=== PATIENT | female | born 1990 | race Caucasian/White ===

== ENCOUNTER 2016-09-11 08:52 | Outpatient (CLI) | payer MEDICAID ==
[~2016-09-11] VITALS: Ht 165.1 cm; Wt 77.6 kg
[~2016-09-11 08:52] MED LIST: FRS325T PO; MUPI22OI29 EXT; OXYC-12 PO; PNV1CAPS13 PO
[2016-09-11] MEDS ORDERED: SERT50TA2 PO (09:07)
[2016-09-11 09:09] VITALS: BP 107/64
== END 2016-09-11 09:33 | disposition home or self-care (01) ==
LOC: PREOP 08:52
PROVIDERS: ATTEND Obstetrics & Gynecology
DX: Z01.818 Encounter for other preprocedural examination (principal); Z11.2 Encounter for screening for other bacterial diseases; O34.219 Maternal care for unspecified type scar from previous cesarean delivery
CPT/HCPCS: 87081

== ENCOUNTER 2016-09-20 06:06 | Inpatient (IN) | payer MEDICAID ==
[~2016-09-20] VITALS: Ht 167.6 cm; Wt 75.8 kg
[~2016-09-20 06:06] MED LIST changes: +CITRIC ACID/SOB CIT (BICITRA) 30 ML UDC ONE; +FAMOTIDINE 20MG/2ML IV (PEPCID) ONE; +LACTATED RINGERS 2,000 ML IV ONE; +METOCLOPRAMIDE INJ 10 MG/2 ML (REGLAN) ONE; +SERT50TA2 PO
--- OUTSIDE RECORDS SUMMARY | 2016-09-20 06:15 | XMS REPORT | Continuity of Care Document ---
Author Author [facility] Organization [facility] Address Unknown Phone Unavailable Care Team Providers Care Roof Truss Machine Tender Name Role Phone MARY CACERES MD PCP Insurance Providers Payer Name Policy Number Subscriber Name Relationship [facility] [id number] Christina Becerril 18 Self / Same As Patient Advance Directives Directive Response Recorded Date/Time Advance Directives No 09/11/16 9:00am Health Care Power of Bioinformatics Scientist No 09/11/16 9:00am Organ Donor No 09/11/16 9:00am Resuscitation Status Full Code 09/11/16 9:00am Problems No problem information available. Medications Current Home Medications Medication Dose Units Route Directions Days/Qty Instructions Start Date Pnv Comb.no58/Iron Bisgly/Fa 1 Each 1 Each Oral Daily Take daily for at least one month or as long as 11/27/12 Sertraline Hcl 50 Mg 50 Mg Oral Daily 09/11/16 Past Home Medications Medication Directions Ordered Status Mupirocin 22 Gm Oint, 22 Gm External Twice A Day 12/02/12 Discontinued Oxycodone Hcl/Acetaminophen 1 Each Tablet, 1 - 2 Each Oral Every 4HRS as needed 12/04/12 Discontinued Ferrous Sulfate 325 Mg Tablet, 1 Tab Oral Twice A Day 12/04/12 Discontinued Social History Social History Problem Response Recorded Date/Time Alcohol Use Denies Use 12/02/2012 10:19am Recreational Drug Use No 12/02/2012 10:19am Recent Foreign Travel No 12/02/2012 10:19am Recent Infectious Disease Exposure No 12/02/2012 10:19am Hospitalization with Isolation Denies 12/04/2012 8:57am Sexually Transmitted Disease No 09/11/2016 9:04am HIV/AIDS No 09/11/2016 9:04am Smoking Status Never a Smoker 09/11/2016 9:04am Recent Hopitalizations No 09/11/2016 9:04am Sexually Transmitted Disease No 09/11/2016 9:04am Hospitalization with Isolation Denies 12/04/2012 8:57am Query Response Start Date Stop Date Smoking Status Never a Smoker Hospital Discharge Instructions No hospital discharge instructions. Plan of Care Discharge Date 09/11/16 9:33am Prescriptions See Medication Section Functional Status No functional status results. Allergies, Adverse Reactions, Alerts No known allergies. Immunizations No immunization records. Vital Signs Acute Vital Signs Vital Response Date/Time Pulse Rate (adult) 81 bpm (60 - 90) 09/11/2016 9:09am Respiratory Rate 16 bpm (12 - 24) 09/11/2016 9:09am O2 Sat by Pulse Oximetry 98 % (88 - 100) 09/11/2016 9:09am Blood Pressure 107/64 mm Hg 09/11/2016 9:09am Blood Pressure Mean 78 mm Hg 09/11/2016 9:09am Pain Numeric Pain Scale 0-No Pain 09/11/2016 9:09am Height (Feet) 5 feet 09/11/2016 9:00am Height (Inches) 5.00 inches 09/11/2016 9:00am Height (Calculated Centimeters) 165.457756 cm 09/11/2016 9:00am Weight (Pounds) 171 pounds 09/11/2016 9:00am Weight (Ounces) 3.0 oz 09/11/2016 9:00am Weight (Calculated Grams) 20018.35 gm 09/11/2016 9:00am Weight (Calculated Kilograms) 77.925661 kilograms 09/11/2016 9:00am Calculated BMI 28.5 09/11/2016 9:00am Results No known relevant diagnostic tests, laboratory data and/or discharge summary. Procedures No known history of procedures. Encounters Encounter Location Arrival/Admit Date Discharge/Depart Date Attending Provider Departed Clinic [facility] 09/11/16 8:52am 09/11/16 9: 33am MAURILIO EUGENE MD
[2016-09-20] MEDS ORDERED: LACTATED RINGERS 1,000 ML IV PRN (06:18)
[2016-09-20] MEDS: LACTATED RINGERS 1,000 ML IV PRN ×2 (06:20→08:10)
[2016-09-20] MEDS ORDERED: CITRIC ACID/SOB CIT (BICITRA) 30 ML UDC PO ONE (06:30)
[2016-09-20] MEDS ORDERED: FAMOTIDINE 20MG/2ML IV (PEPCID) IV ONE (06:30)
[2016-09-20] MEDS ORDERED: METOCLOPRAMIDE INJ 10 MG/2 ML (REGLAN) IV ONE (06:30)
[2016-09-20 06:40] LABS: BASOPHILS % (AUTO) 0 % (0-10); EOSINOPHILS # (AUTO) 0.1 10^3/uL (0.0-0.3); EOSINOPHILS % (AUTO) 1 % (0-10); LYMPHOCYTES # (AUTO) 3.4 X 10^3 (1.0-4.0); LYMPHOCYTES % (AUTO) 26 % (12-44); MEAN CORPUSCULAR HEMOGLOBIN 29 PG (25-34); MEAN CORPUSCULAR HGB CONC 34 G/DL (32-36); MEAN CORPUSCULAR VOLUME 85 FL (80-99); MEAN PLATELET VOLUME 10.5 FL (7.4-10.4); MONOCYTES % (AUTO) 8 % (0-12); NEUTROPHILS # (AUTO) 8.3 X 10^3 (1.8-7.8); NEUTROPHILS % (AUTO) 65 % (42-75); PLATELET COUNT 329 10^3/uL (130-400); RED CELL DISTRIBUTION WIDTH 12.8 % (10.0-14.5); WHITE BLOOD COUNT 12.9 10^3/uL (4.3-11.0)
[2016-09-20 06:44] LABS: KETONES,URINE 1+ (NEGATIVE); LEUKOCYTE ESTERASE ,URINE 1+ (NEGATIVE); NITRITE,URINE NEGATIVE (NEGATIVE); PH,URINE 6 (5-9); PROTEIN,URINE 1+ (NEGATIVE); UROBILINOGEN,URINE 4 MG/DL (NORMAL)
[2016-09-20] MEDS ORDERED: KETOROLAC 30 MG/ML VIAL ONE (06:54)
[2016-09-20] MEDS ORDERED: OXYTOCIN/NORMAL SALINE 1,000 ML IV ONE (06:54)
[2016-09-20] MEDS ORDERED: ONDANSETRON 4 MG/2 ML (SDV) Z0FRAN ONE (06:54)
[2016-09-20] MEDS ORDERED: morphine PF (DURAMORPH) 10 MG/10 ML AMP ONE (06:55)
[2016-09-20] MEDS ORDERED: fentaNYL INJECTION 100 MCG/2 ML AMP ONE (06:55)
[2016-09-20 07:02] LABS: BILIRUBIN,URINE 1+ (NEGATIVE); WBC,URINE RARE /HPF
[2016-09-20] MEDS ORDERED: FLU TRIvalent (5 YOA+) 2016-17 (AFLURIA) 0.5 ML IM ONE (07:15)
--- NOTE | 2016-09-20 07:41 | History & Physical-OB ---
OB - Chief Complaint & HPI Date Date of Admission: Date of Admission: Sep 20, 2016 at 06:06 Chief Complaint/History OB-Reason for Admission/Chief: Section Hx : 4 Hx Para: 3 Expected Date of Delivery: Sep 27, 2016 Gestational Age in Weeks: 39 Gestational Age in Days: 0 Other reason for admission: 26 y/o @ 39w0d here for routine OB visit. H/o c/s x 3, GERD on PPI, depression on zoloft. GBS neg. Fetus is active, no LOF CTX VB. No complaints or concerns today. History of Labs A+ Ab neg RI Hep B neg Hep C neg RPR NR GC/CT neg/neg GBS neg Allergies and Home Medications Allergies Coded Allergies: No Known Drug Allergies (Unverified , 09/11/16) Home Medications Pnv Comb.no58/Iron Bisgly/Fa 1 Each Capsule 1 EACH PO DAILY (Reported) Take daily for at least one month or as long as Sertraline HCl 50 Mg Tablet 50 MG PO DAILY (Reported) OB - History Hx of Present Care: Yes Ultrasounds: Normal mid trimester US Obstetrical Complications: Other (social stressors (FOB jailed)) Medical Complications: Other (Depression - on zoloft, GERD on PPI) Information Induced Hypertension: No Maternal Gestational Diabetes: No Hemorrhage: No Obstetrical History Hx : 4 Hx Para: 3 Delivery History Hx Section: Yes (x3) Hx Blood Disorders: No Adverse Rxn to Tranfusion: No (N/A) Patient Past Medical History see above Social History/Family History HIV/AIDS: No Recent Infectious Disease Expo: No Sexually Transmitted Disease: No Alcohol Use: Denies Use Recreational Drug Use: No Immunizations Hepatitis A: No Hepatitis B: No Tetanus Booster (TDap): Less than 5yrs (2016 - during ) OB - Admission Exam Physical Exam Vitals: see nursing documentation of vitals HEENT: NCAT Heart: Rhythm Normal Lungs: Clear Abdomen: Gravid Extremities: Normal Reflexes: Normal Heart Rate: 120's Accelerations: Accelerations Present Decelerations: No Decelerations Short Term Variability: Present Refuse Laborer Variability: Average (6-25) Contractions on Admission: >10 Minutes Apart Labs Laboratory Tests Test 09/20/16 06:05 09/20/16 06:20 Range/Units Urine Bacteria TRACE /HPF Urine Bilirubin 1+ H NEGATIVE Urine Casts NONE /LPF Urine Clarity CLEAR Urine Color YELLOW Urine Crystals NONE /LPF Urine Culture Indicated NO Urine Glucose (UA) NEGATIVE NEGATIVE Urine Ketones 1+ H NEGATIVE Urine Leukocyte Esterase 1+ H NEGATIVE Urine Mucus LARGE H /LPF Urine Nitrite NEGATIVE NEGATIVE Urine Protein 1+ H NEGATIVE Urine RBC NONE /HPF Urine RBC (Auto) NEGATIVE NEGATIVE Urine Specific [place] 1.025 H 1.016-1.022 Urine Squamous Epithelial Cells 5-10 /HPF Urine Urobilinogen 4 H NORMAL MG/DL Urine WBC RARE /HPF Urine pH 6 5-9 Basophils # (Auto) 0.0 0.0-0.1 10^3/uL Basophils (%) (Auto) 0 0-10 % Eosinophils # (Auto) 0.1 0.0-0.3 10^3/uL Eosinophils (%) (Auto) 1 0-10 % Hematocrit 35 35-52 % Hemoglobin 11.7 11.5-16.0 G/DL Lymphocytes # (Auto) 3.4 1.0-4.0 X 10^3 Lymphocytes (%) (Auto) 26 12-44 % Mean Corpuscular Hemoglobin 29 25-34 PG Mean Corpuscular Hemoglobin Concent 34 32-36 G/DL Mean Corpuscular Volume 85 80-99 FL Mean Platelet Volume 10.5 H 7.4-10.4 FL Monocytes # (Auto) 1.0 0.0-1.0 X 10^3 Monocytes (%) (Auto) 8 0-12 % Neutrophils # (Auto) 8.3 H 1.8-7.8 X 10^3 Neutrophils (%) (Auto) 65 42-75 % Platelet Count 329 130-400 10^3/uL Red Blood Count 4.10 L 4.35-5.85 10^6/uL Red Cell Distribution Width 12.8 10.0-14.5 % White Blood Count 12.9 H 4.3-11.0 10^3/uL OB - Assessment/Plan/Diagnosis Plan Other Plan 26 y/o @ 39w0d with history of CD x 3, here for repeat CD. Depression - doing well on zoloft GERD Rh+ RI To OR for CD Discussed risks including bleeding, infection, damage to surrounding structures including mother/, risk of undiagnosed invasive placentation and need for hysterectomy with blood product replacement, possible life threatening complications Spinal for analgesia Continue zoloft, PPI MAURILIO EUGENE MD Sep 20, 2016 07:41
[2016-09-20] MEDS ORDERED: ceFAZolin INJECTION 1,000 MG in NORMAL SALINE (BAXTER MINI) 50 ML IV ONE (07:45)
[2016-09-20] MEDS ORDERED: LACTATED RINGERS 1,000 ML IV ONE (07:56)
[2016-09-20] MEDS ORDERED: PHENYLEPHRINE INJ 10 MG/ML (NEO-SYNEPHRINE 1%) ONE (08:04)
[2016-09-20] MEDS ORDERED: morphine PF (DURAMORPH) 10 MG/10 ML AMP INJ ONE (09:00)
[2016-09-20] MEDS ORDERED: fentaNYL INJECTION 100 MCG/2 ML AMP INJ ONE (09:00)
[2016-09-20] MEDS ORDERED: NALOXONE 0.4 MG/ML 1 ML (NARCAN) VIAL IV PRN (09:00)
[2016-09-20] MEDS ORDERED: IBUP-1780 PO (09:21)
[2016-09-20] MEDS ORDERED: OXYC-197 PO (09:21)
[2016-09-20] MEDS ORDERED: FERR-74 PO (09:21)
[2016-09-20] MEDS ORDERED: DOCU-143 PO (09:21)
--- NOTE | 2016-09-20 09:24 | Discharge Inst-Women's Service ---
Discharge Inst-Women's Serv Depart Medication/Instructions New, Converted or Re-Newed RX: RX on Chart (and transmitted to pharmacy) Final Diagnosis TIUP, history of CD x 3, CD Consults/Follow Up Additional Follow Up: Yes Orders/Referrals 10-[address] Pastrana for incision check [address] Pastrana for visit Activity Activity: Activity as Tolerated (no strenuous activity, no heavy lifting > 10 lb for 2 weeks) Driving Instructions: No Driving for 1 Week (or while taking narcotic pain medications) NO SMOKING: NO SMOKING Nothing Inside Vagina: No Douching, No [place], No Tampons Diet Discharge Diet: No Restrictions Symptoms to Report to : Bleeding Excessive, Pain Increased, Fever Over 101 Degrees F, Pain/Pressure in Chest, Vaginal Bleeding Increase, Dizziness/Fainting , Nausea/Vomiting, Shortness of Breath For Any Problems or Questions: Contact Your Physician Skin/Wound Care Infection Signs and Symptoms: Increased Redness, Foul Odor of Wound, Increased Drainage Operative Area Clean and Dry: Keep Incision Clean/Dry Stitches/[place]/Dermabond: Dermabond, Care of Stitches Bathing Instructions: MAURILIO Alva MD Sep 20, 2016 09:24
--- NOTE | 2016-09-20 09:28 | Cesarean Section Operative ---
Procedure Procedure Note Date of Procedure: September 20, 2016 Pre-operative Diagnosis: Christina Becerril is a 26 y/o @ 39w0d with history of delivery x 3, GBS negative Post-operative Diagnosis: Same Procedure: Repeat low transverse section Physician: Tawanna Pastrana MD Estimated blood loss: 400 mL Disposition: Recovery room, stable Findings: Viable male , Apgars 8/9, weight 7lb8oz, intact placenta, 3vc, normal appearing uterus, tubes, and ovaries. Indications:Christina Becerril is a 26 y/o @ 39w0d presenting for repeat delivery (she had a history of three deliveries). Procedure Details: The patient was seen in pre-op and the procedure was discussed with the patient in full, including the risks, benefits, and alternatives. All questions were answered. The patient was taken to the operating room and a time out was performed, verifying patient and procedure. Berta-operative antibiotics (ancef) were administered. After spinal anesthesia was placed by our anesthesia colleagues, the patient was placed in the dorsal supine with leftward tilt for uterine displacement. Her abdomen was then prepped and draped in the typical sterile fashion. A Pfannenstiel skin incision was made using a scalpel and carried down through the underlying fascia. The fascia was incised in the midline and tented up using Francisco clamps. On both the inferior and superior fascia side the rectus muscle was dissected off bluntly and sharply using Benavides scissors. The peritoneum was identified and entered bluntly in the midline. This was then stretched laterally using manual strength. After entering the abdominal cavity and confirming lack of intraperitoneal adhesions, a large Damaso retractor was placed and the lower uterine segment was visualized. A bladder flap was created with the use of Metzenbaum scissors. There were minimal to moderate adhesions present from the bowel to the uterus but overall, adhesive disease was felt to be minimal. A scalpel was utilized to make a low transverse uterine incision. Amniotomy was performed with an Allis clamp with return of clear fluid. The infant's head was grasped and brought to the level of the incision. Fundal pressure was applied and was delivered without difficulty. Mouth and nares were suctioned with bulb suction. After the umbilical cord was clamped and cut after a pause of 30 to 60 seconds, the infant was handed off to the pediatric staff and then placed on his mother's chest. A sample of cord blood was then obtained. The placenta was delivered intact via uterine massage. The uterus was cleared of all clots and debris. The uterine incision was closed using 0 Vicryl in a running locked fashion. A second imbricated layer was placed using 0 Vicryl in a running fashion as well. The hysterotomy site was examined and hemostasis was observed. The bilateral tubes and ovaries appeared normal. The abdominal gutters were cleared of all clots and debris. A final check of the uterine incision showed it to be hemostatic. The peritoneum was closed using 3-0 Vicryl in a running fashion. The fascia was closed with 0 Vicryl in a running fashion. The subcutaneous space was hemostatic, and irrigated. The subcutaneous space was closed with 3-0 Vicryl in a running stitch. The skin was then closed using 4 -0 Monocryl in a running subcuticular fashion. The skin edges were reapproximated together and were hemostatic. A pressure dressing was applied. All sponge, lap and needle counts were correct at the end of the procedure per nursing. Copies To 1: TAWANNA PASTRANA MD Vitals - Labs Labs Laboratory Tests 09/20/16 06:05: Urine Bacteria TRACE, Urine Bilirubin 1+H, Urine Casts NONE, Urine Clarity CLEAR , Urine Color YELLOW, Urine Crystals NONE, Urine Culture Indicated NO, Urine Glucose (UA) NEGATIVE, Urine Ketones 1+H, Urine Leukocyte Esterase 1+H, Urine Mucus LARGEH, Urine Nitrite NEGATIVE, Urine Protein 1+H, Urine RBC NONE, Urine RBC (Auto) NEGATIVE, Urine Specific [place] 1.025H, Urine Squamous Epithelial Cells 5-10, Urine Urobilinogen 4H, Urine WBC RARE, Urine pH 6 09/20/16 06:20: Basophils # (Auto) 0.0, Basophils (%) (Auto) 0, Eosinophils # (Auto) 0.1, Eosinophils (%) (Auto) 1, Hematocrit 35, Hemoglobin 11.7, Lymphocytes # (Auto) 3.4, Lymphocytes (%) (Auto) 26, Mean Corpuscular Hemoglobin 29, Mean Corpuscular Hemoglobin Concent 34, Mean Corpuscular Volume 85, Mean Platelet Volume 10.5H, Monocytes # (Auto) 1.0, Monocytes (%) (Auto) 8, Neutrophils # ( Auto) 8.3H, Neutrophils (%) (Auto) 65, Platelet Count 329, Red Blood Count 4.10L , Red Cell Distribution Width 12.8, White Blood Count 12.9H TAWANNA PASTRANA MD Sep 20, 2016 09:28
[2016-09-20] MEDS ORDERED: diphenhydrAMINE 50 MG/ML INJ (BENADRYL) ONE (10:22)
[2016-09-20] MEDS ORDERED: OXYTOCIN/NORMAL SALINE 500 ML IV SCH (10:32)
[2016-09-20] MEDS ORDERED: diphenhydrAMINE 50 MG/ML INJ (BENADRYL) IVP PRN (10:45)
[2016-09-20] MEDS ORDERED: ONDANSETRON 4 MG/2 ML (SDV) Z0FRAN IVP PRN (10:45)
[2016-09-20] MEDS ORDERED: MEASLES,MUMPS,RUBELLA 1 EA INJ SC SCH (10:45)
[2016-09-20] MEDS ORDERED: TETANUS,DIPTH,PERTUSS P/F (BOOSTRIX) 0.5 ML VIAL IM SCH (10:45)
[2016-09-20 12:30] VITALS: BP 92/56
[2016-09-20] MEDS: oxyCODONE/APAP 5/325MG (PERCOCET 5) TABLET PO PRN (12:40)
[2016-09-20] MEDS ORDERED: CATHETER FLUSH 10 ML SYR IV SCH (14:00)
[2016-09-20 16:15] VITALS: BP 98/61
[2016-09-20] MEDS: KETOROLAC 30 MG/ML VIAL IVP SCH ×2 (16:21→21:19)
[2016-09-20 21:00] VITALS: BP 91/55
[2016-09-20] MEDS: DOCUSATE SODIUM 100 MG (COLACE) CAP PO SCH (21:15)
[2016-09-21 01:20] VITALS: BP 95/54
[2016-09-21 05:50] VITALS: BP 101/62
[2016-09-21] MEDS: KETOROLAC 30 MG/ML VIAL IVP SCH (05:58)
[2016-09-21 06:01] LABS: BASOPHILS % (AUTO) 0 % (0-10); EOSINOPHILS # (AUTO) 0.2 10^3/uL (0.0-0.3); EOSINOPHILS % (AUTO) 2 % (0-10); LYMPHOCYTES # (AUTO) 3.7 X 10^3 (1.0-4.0); LYMPHOCYTES % (AUTO) 34 % (12-44); MEAN CORPUSCULAR HGB CONC 33 G/DL (32-36); MEAN CORPUSCULAR VOLUME 87 FL (80-99); MEAN PLATELET VOLUME 10.1 FL (7.4-10.4); MONOCYTES % (AUTO) 9 % (0-12); NEUTROPHILS # (AUTO) 5.9 X 10^3 (1.8-7.8); NEUTROPHILS % (AUTO) 55 % (42-75); PLATELET COUNT 279 10^3/uL (130-400); RED BLOOD COUNT 3.23 10^6/uL (4.35-5.85); RED CELL DISTRIBUTION WIDTH 12.9 % (10.0-14.5); WHITE BLOOD COUNT 10.9 10^3/uL (4.3-11.0)
[2016-09-21 06:02] LABS: MEAN CORPUSCULAR HEMOGLOBIN 28 PG (25-34)
[2016-09-21] MEDS: PANTOPRAZOLE 40 MG (PROTONIX) TAB PO SCH (07:00)
--- NOTE | 2016-09-21 08:04 | Anesthesia-Regional Post-Op ---
Regional Patient Condition Mental Status: Alert, Oriented x3 Circulation: Same as Pre-Op Headache: Absent Sensation: Full Recovery Motor Block: Absent Post Op Complications Complications None Follow Up Care/Instructions Patient Instructions None needed. Anesthesia/Patient Condition Patient is doing well, no complaints, stable vital signs, no apparent adverse anesthesia problems. No complications reported per nursing. RYAN HOUSTON CRNA Sep 21, 2016 08:04
[2016-09-21 08:45] VITALS: BP 95/59
[2016-09-21] MEDS: DOCUSATE SODIUM 100 MG (COLACE) CAP PO SCH ×2 (08:55→21:37)
[2016-09-21] MEDS: oxyCODONE/APAP 5/325MG (PERCOCET 5) TABLET PO PRN ×3 (08:57→21:36)
[2016-09-21] MEDS ORDERED: FERROUS SULF 325 MG (IRON) TAB PO SCH (09:00)
--- NOTE | 2016-09-21 09:17 | Postpartum Progress Note ---
Post Op Post-operative Day #1 s/p RLTCS Patient not available when I rounded (showering). I have returned for delivery so examining now. Complains of some unilateral leg swelling. Baby has a pneumothorax (very small and improving) and possible pneumonia. Patient has ambulated early and regularly but SVDs in bed. Subjective: Patient is without complaints. Ambulating, voiding after berry removed. Tolerating a regular diet without nausea or vomiting. Normal lochia. Pain is well controlled with oral pain medications. Passing flatus. Objective: Laboratory Tests Test 09/21/16 05:51 Range/Units Basophils # (Auto) 0.0 0.0-0.1 10^3/uL Basophils (%) (Auto) 0 0-10 % Eosinophils # (Auto) 0.2 0.0-0.3 10^3/uL Eosinophils (%) (Auto) 2 0-10 % Hematocrit 28 L 35-52 % Hemoglobin 9.2 #L 11.5-16.0 G/DL Lymphocytes # (Auto) 3.7 1.0-4.0 X 10^3 Lymphocytes (%) (Auto) 34 12-44 % Mean Corpuscular Hemoglobin 28 25-34 PG Mean Corpuscular Hemoglobin Concent 33 32-36 G/DL Mean Corpuscular Volume 87 80-99 FL Mean Platelet Volume 10.1 7.4-10.4 FL Monocytes # (Auto) 1.0 0.0-1.0 X 10^3 Monocytes (%) (Auto) 9 0-12 % Neutrophils # (Auto) 5.9 1.8-7.8 X 10^3 Neutrophils (%) (Auto) 55 42-75 % Platelet Count 279 130-400 10^3/uL Red Blood Count 3.23 L 4.35-5.85 10^6/uL Red Cell Distribution Width 12.9 10.0-14.5 % White Blood Count 10.9 4.3-11.0 10^3/uL Vital Signs 09/21/16 05:50 Temp 97.8 Pulse 77 Resp 18 B/P 101/62 Pulse Ox 95 O2 Delivery Room Air Physical Exam: General - Alert and oriented, no apparent distress Abdomen - Soft, appropriately tender to palpation, non-distended, fundus firm at umbilicus Incision - clean, dry and intact; no erythema or induration, no drainage Extremities - tr edema, negative Casie's bilaterally. Legs are asymmetric. Calf on left is 39 mm and on r is 35 mm. No erythema, no heat, no ropiness and only minimal edema. No pain [] Assessment: 1 post-operative day # 1, status post RLTCS. Recovering well, hemodynamically stable 2. Acute blood loss anemia 3. Leg swelling Plan: Routine post-operative care. Encourage breast feeding. Encourage ambulation. VTE prophylaxis: SCDs. Will get venous doppler and treat accordingly Ferrous sulfate supplementation. Plan for discharge tomorrow or Friday. Addendum - negative venous doppler Vitals - Labs Vital Signs - I&O Vital Signs Date Time Temp Pulse Resp B/P Pulse Ox O2 Delivery O2 Flow Rate FiO2 09/21/16 05:50 97.8 77 18 101/62 95 Room Air 09/21/16 01:20 98.5 78 18 95/54 97 Room Air 09/20/16 21:00 97.9 65 18 91/55 98 Room Air 09/20/16 16:15 98.0 77 20 98/61 100 Room Air 09/20/16 16:10 Room Air 09/20/16 12:30 98.0 73 20 92/56 100 Room Air I & O 09/21/16 07:00 Intake Total 2770 ml Output Total 2285 ml Balance 485 ml Labs Laboratory Tests 09/21/16 05:51: Basophils # (Auto) 0.0, Basophils (%) (Auto) 0, Eosinophils # (Auto) 0.2, Eosinophils (%) (Auto) 2, Hematocrit 28L, Hemoglobin 9.2#L, Lymphocytes # (Auto ) 3.7, Lymphocytes (%) (Auto) 34, Mean Corpuscular Hemoglobin 28, Mean Corpuscular Hemoglobin Concent 33, Mean Corpuscular Volume 87, Mean Platelet Volume 10.1, Monocytes # (Auto) 1.0, Monocytes (%) (Auto) 9, Neutrophils # (Auto ) 5.9, Neutrophils (%) (Auto) 55, Platelet Count 279, Red Blood Count 3.23L, Red Cell Distribution Width 12.9, White Blood Count 10.9 MINNIE GÓMEZ DO Sep 21, 2016 09:17
[2016-09-21 12:10] VITALS: BP 111/71
[2016-09-21] MEDS: IBUPROFEN 800 MG (MOTRIN) TAB PO SCH ×2 (12:16→19:02)
[2016-09-21 17:00] VITALS: BP 114/69
[2016-09-21] MEDS: FERROUS SULF 325 MG (IRON) TAB PO SCH (17:08)
--- NOTE | 2016-09-21 19:40 | Diagnostic Imaging Report ---
INDICATION: Postop swelling of the left leg. EXAMINATION: Bilateral lower extremity venous ultrasound. FINDINGS: There is normal color flow enhancement in the lower extremities, bilaterally. Augmentation of flow is normal at the popliteal level with calf compression. IMPRESSION: Normal bilateral extremity color duplex venous ultrasound with no evidence of deep venous thrombosis. Dictated by: Dictated on workstation # [id number]
[2016-09-21 20:00] VITALS: BP 103/70
[2016-09-21] MEDS: SERTRALINE 50 MG (ZOLOFT) TABLET PO SCH ×2 (21:37→22:01)
[2016-09-22] MEDS: oxyCODONE/APAP 5/325MG (PERCOCET 5) TABLET PO PRN ×2 (02:10→13:10)
[2016-09-22] MEDS: IBUPROFEN 800 MG (MOTRIN) TAB PO SCH ×4 (02:10→20:48)
[2016-09-22 02:19] VITALS: BP 92/61
[2016-09-22] MEDS: PANTOPRAZOLE 40 MG (PROTONIX) TAB PO SCH (07:00)
[2016-09-22 08:00] VITALS: BP 107/67
[2016-09-22] MEDS: DOCUSATE SODIUM 100 MG (COLACE) CAP PO SCH ×2 (08:08→20:48)
[2016-09-22] MEDS: FERROUS SULF 325 MG (IRON) TAB PO SCH ×2 (08:08→17:40)
--- NOTE | 2016-09-22 11:19 | Postpartum Progress Note ---
Post Op Post-operative Day #2. Subjective: Patient is without complaints. Ambulating, voiding after berry removed. Tolerating a regular diet without nausea or vomiting. Normal lochia. Pain is well controlled with oral pain medications. Passing flatus. Leg improved. Doppler negative. Baby doing better today. Objective: Vital Signs 09/22/16 08:00 Temp 97.9 Pulse 72 Resp 18 B/P 107/67 Pulse Ox 99 O2 Delivery Room Air Physical Exam: General - Alert and oriented, no apparent distress Abdomen - Soft, appropriately tender to palpation, non-distended, fundus firm at umbilicus Incision - clean, dry and intact; no erythema or induration, no drainage Extremities - 1+edema, negative Casie's bilaterally Assessment: 1. post-operative day # 2, status post [RLTCS. Recovering well, hemodynamically stable 2. Acute blood loss anemia - stable. On po iron Plan: Routine post-operative care. Encourage breast feeding. Encourage ambulation. VTE prophylaxis: SCDs. Ferrous sulfate supplementation. Plan for discharge to parent room today or tomorrow Vitals - Labs Vital Signs - I&O Vital Signs Date Time Temp Pulse Resp B/P Pulse Ox O2 Delivery O2 Flow Rate FiO2 09/22/16 08:00 97.9 72 18 107/67 99 Room Air 09/22/16 02:19 98.1 72 18 92/61 100 Room Air 09/21/16 20:00 98.1 76 18 103/70 100 Room Air 09/21/16 17:00 97.6 82 18 114/69 99 Room Air 09/21/16 12:10 98.2 76 18 111/71 99 Room Air I & O 09/22/16 07:00 Intake Total 2642 ml Output Total 2600 ml Balance 42 ml MINNIE GÓMEZ DO Sep 22, 2016 11:19
[2016-09-22 13:10] VITALS: BP 112/62
[2016-09-22 17:30] VITALS: BP 106/68
[2016-09-22 20:46] VITALS: BP 94/66
[2016-09-22] MEDS: SERTRALINE 50 MG (ZOLOFT) TABLET PO SCH (22:55)
[2016-09-23 02:15] VITALS: BP 89/53
[2016-09-23] MEDS: IBUPROFEN 800 MG (MOTRIN) TAB PO SCH ×2 (02:15→08:31)
[2016-09-23] MEDS: PANTOPRAZOLE 40 MG (PROTONIX) TAB PO SCH (07:00)
--- NOTE | 2016-09-23 07:14 | Progress Note-Standard ---
Standard Progress Note Progress Notes/Assess & Plan Progress/Assessment & Plan patient ended up staying yesterday and will be discharged apparently him today. She has no new complaints. Incision is clean dry and intact. Vital Signs 09/23/16 02:15 Temp 98.2 Pulse 73 Resp 18 B/P 89/53 Pulse Ox 95 O2 Delivery Room Air Assessment - postop day 3 status post repeat low transverse Plan - admit to Rooming in status. MINNIE GÓMEZ DO Sep 23, 2016 07:13
[2016-09-23 08:00] VITALS: BP 110/60
[2016-09-23] MEDS: FERROUS SULF 325 MG (IRON) TAB PO SCH (08:31)
[2016-09-23] MEDS: DOCUSATE SODIUM 100 MG (COLACE) CAP PO SCH (08:31)
== END 2016-09-23 12:38 | disposition home or self-care (01) | DRG 765 ==
LOC: LDRP 06:06
PROVIDERS: ADMIT Obstetrics & Gynecology; ATTEND Obstetrics & Gynecology
PROC: 10D00Z1 Extraction of Products of Conception, Low, Open Approach (ICD-10-PCS; principal; 2016-09-20 07:47)
DX: O34.211 Maternal care for low transverse scar from previous cesarean delivery (principal); O99.613 Diseases of the digestive system complicating pregnancy, third trimester; K21.9 Gastro-esophageal reflux disease without esophagitis; O99.344 Other mental disorders complicating childbirth; F32.9 Major depressive disorder, single episode, unspecified; O90.81 Anemia of the puerperium; D62 Acute posthemorrhagic anemia; O75.89 Other specified complications of labor and delivery; Z37.0 Single live birth; M79.89 Other specified soft tissue disorders; Z3A.39 39 weeks gestation of pregnancy
CPT/HCPCS: 36415; 81000; 85025; 86850; 86900; 86901; 93970; 94664

== ENCOUNTER → 2018-11-20 | Outpatient (CLI) | payer MEDICAID ==
[~2018-11-20] MED LIST changes: -CITRIC ACID/SOB CIT (BICITRA) 30 ML UDC ONE; +DOCU-143 PO; -FAMOTIDINE 20MG/2ML IV (PEPCID) ONE; +FERR325T18 PO; +IBUP-1780 PO; -LACTATED RINGERS 2,000 ML IV ONE; -METOCLOPRAMIDE INJ 10 MG/2 ML (REGLAN) ONE; +OXYC1TAB87 PO
--- NOTE | 2018-11-20 13:06 | Diagnostic Imaging Report ---
INDICATION: survey. TECHNIQUE: Multiple real-time grayscale images were obtained over the gravid uterus. COMPARISON: None. FINDINGS: There is a single live fetus in a variable presentation. heart rate was recorded at 152 beats per minute. Placenta is anterior. Amniotic fluid volume is normal. Cervical length is approximately 3.1 cm. survey demonstrates bladder and stomach to be unremarkable. brains are unremarkable. There is a four-chamber heart. There is a three-vessel cord with normal insertion. The spine is limited in evaluation due to position. In addition, left kidney was not well evaluated today. Right kidney is unremarkable. Biometrical measurements are as follows: Biparietal 4.62 cm, age 20 weeks 0 days. Head circumference 17.58 cm, age 20 weeks 1 days. Abdominal circumference 14.32 cm, age 19 weeks 5 days. Femur length 3.12 cm, age 19 weeks 5 days. Sonographic estimate age: 20 weeks 0 days. Sonographic estimated date of delivery: 04/09/2019. Estimated Weight: 309 gm (+/- 45 gm). LMP percentile: 18%. heart rate: 152 beats per minute. number: 1 of 1. IMPRESSION: 1. Single live IUP of 20 weeks 0 days gestational age. Estimated date of confinement sonographically is 04/09/2019. 2. survey is unremarkable, although spine and left kidney were limited in evaluation due to position. Followup could be performed. Dictated by: Dictated on workstation # [id number]
== END ==
LOC: RAD 09:46
PROVIDERS: ATTEND Obstetrics & Gynecology
DX: Z36.89 Encounter for other specified antenatal screening (principal); Z3A.20 20 weeks gestation of pregnancy; Z82.79 Family history of other congenital malformations, deformations and chromosomal abnormalities
CPT/HCPCS: 76805

== ENCOUNTER → 2019-02-05 | Outpatient (CLI) | payer MEDICAID ==
--- NOTE | 2019-02-05 17:27 | Diagnostic Imaging Report ---
INDICATION: Followup of spine and kidneys. TECHNIQUE: Multiple real-time grayscale images were obtained over the gravid uterus. COMPARISON: 11/20/2018. FINDINGS: There is a single live fetus in a cephalic presentation. Placenta is anterior. Amniotic fluid volume is normal. heart rate was recorded at 133 beats per minute. Cervical length 3.8 cm. spine and kidneys are visualized and unremarkable today. IMPRESSION: Unremarkable limited obstetrical ultrasound. Dictated by: Dictated on workstation # [id number]
== END ==
LOC: RAD 09:27
PROVIDERS: ATTEND Obstetrics & Gynecology
DX: Z34.93 Encounter for supervision of normal pregnancy, unspecified, third trimester (principal); Z3A.29 29 weeks gestation of pregnancy
CPT/HCPCS: 76805

== ENCOUNTER 2019-03-24 16:00 | Inpatient (IN) | payer MEDICAID ==
[2019-03-24] VITALS (10 sets, daily range): BP systolic 94–132; BP diastolic 56–75
[~2019-03-24] VITALS: Ht 167.6 cm; Wt 78.0 kg
[~2019-03-24 16:00] MED LIST changes: -ACET-77 PO; -DOCU100C37 PO; -IBUP-844 PO; -OXC5T PO
--- NOTE | 2019-03-24 16:00 | NUR ---
MAIRA FERNANDEZ presented to unit via ambulation from 's office, accompanied by family, for direct admit for repeat c/s. Pt. weighed, gowned, voided, and to bed. EFHM and TOCO applied, VS taken. Pt. oriented to bed controls, call light, TV, heat, and A/C controls.
--- NOTE | 2019-03-24 16:30 | NUR ---
POC reviewed with pt and mother. admission paperwork completed.
[2019-03-24] MEDS ORDERED: D5 LR IV SOLUTION 1,000 ML IV SCH (17:18)
[2019-03-24] MEDS ORDERED: FAMOTIDINE 20MG/2ML IV (PEPCID) IV ONE (17:30)
[2019-03-24] MEDS ORDERED: CITRIC ACID/SOB CIT (BICITRA) 30 ML UDC PO ONE (17:30)
[2019-03-24] MEDS ORDERED: METOCLOPRAMIDE INJ 10 MG/2 ML (REGLAN) IV ONE (17:30)
--- NOTE | 2019-03-24 17:35 | NUR ---
#20g IV to Rt.wrist x2 attempts by this RN. site patent, secured with opsite. admission labs collected from site prior to LR infusing.
[2019-03-24 17:51] LABS: BASOPHILS % (AUTO) 0 % (0-10); EOSINOPHILS # (AUTO) 0.1 10^3/uL (0.0-0.3); EOSINOPHILS % (AUTO) 1 % (0-10); HEMATOCRIT 35 % (35-52); LYMPHOCYTES # (AUTO) 2.3 X 10^3 (1.0-4.0); LYMPHOCYTES % (AUTO) 19 % (12-44); MEAN CORPUSCULAR HEMOGLOBIN 29 PG (25-34); MEAN CORPUSCULAR HGB CONC 34 G/DL (32-36); MEAN CORPUSCULAR VOLUME 86 FL (80-99); MEAN PLATELET VOLUME 10.2 FL (7.4-10.4); MONOCYTES # (AUTO) 0.7 X 10^3 (0.0-1.0); MONOCYTES % (AUTO) 6 % (0-12); NEUTROPHILS # (AUTO) 8.8 X 10^3 (1.8-7.8); NEUTROPHILS % (AUTO) 74 % (42-75); PLATELET COUNT 317 10^3/uL (130-400); RED CELL DISTRIBUTION WIDTH 13.4 % (10.0-14.5); WHITE BLOOD COUNT 11.8 10^3/uL (4.3-11.0)
[2019-03-24 17:59] LABS: CLARITY,URINE SLIGHTLY CLOUDY; COLOR,URINE AMBER; GLUCOSE, URINE (UA) NEGATIVE (NEGATIVE); KETONES,URINE 1+ (NEGATIVE); LEUKOCYTE ESTERASE ,URINE 3+ (NEGATIVE); NITRITE,URINE NEGATIVE (NEGATIVE); PH,URINE 6 (5-9); PROTEIN,URINE 2+ (NEGATIVE); UROBILINOGEN,URINE 4 MG/DL (NORMAL)
[2019-03-24 18:19] LABS: BACTERIA,URINE FEW /HPF; BILIRUBIN,URINE 1+ (NEGATIVE); CALCIUM OXALATE CRYSTALS,UR FEW /LPF; RBC,URINE RARE /HPF
--- NOTE | 2019-03-24 18:26 | NUR ---
consent signed for repeat c/s and placed on chart.
[2019-03-24] MEDS ORDERED: ROPIVACAINE 5MG/ML 30ML VIAL ONE (18:27)
[2019-03-24] MEDS ORDERED: fentaNYL INJECTION 100 MCG/2 ML AMP ONE (18:28)
--- NOTE | 2019-03-24 18:28 | NUR ---
2nd liter LR infusing via gravity.
[2019-03-24] MEDS ORDERED: ceFAZolin INJECTION 1,000 MG in WATER (STERILE) FOR INJECTION 10 ML IV NR (18:30)
--- NOTE | 2019-03-24 18:37 | NUR ---
pre-op medications given. see eMar for further.
[2019-03-24] MEDS ORDERED: OXYTOCIN/NORMAL SALINE 500 ML IV ONE ×2 (18:38→18:39)
--- NOTE | 2019-03-24 18:51 | NUR ---
monitors dc'd. pt ambulated to OB c/s room with OR staff @ side. pt stable.
--- NOTE | 2019-03-24 19:20 | NUR ---
report given to LEAH Branham.
[2019-03-24] MEDS ORDERED: OXYTOCIN/NORMAL SALINE 500 ML IV SCH (19:51)
[2019-03-24] MEDS ORDERED: KETOROLAC 30 MG/ML VIAL ONE (19:54)
[2019-03-24] MEDS ORDERED: MEASLES,MUMPS,RUBELLA 1 EA INJ SC SCH (20:00)
[2019-03-24] MEDS ORDERED: TETANUS,DIPTH,PERTUSS P/F (BOOSTRIX) 0.5 ML VIAL IM SCH (20:00)
[2019-03-24] MEDS: KETOROLAC 30 MG/ML VIAL IV SCH (20:00)
--- NOTE | 2019-03-24 20:07 | Cesarean Section Operative ---
Procedure Procedure Note Pre-operative Diagnosis: Christina Becerril is a (28 /Para 5/4 ,38 week gestation, no reassuring testing, arrhythmia, contractions, previous section Post-operative Diagnosis: same Procedure: Repeat low transverse section, lysis of adhesions Physician: MINNIE GÓMEZ Icicle Machine Operator: ROSY Estimated blood loss: 750 mL Disposition: stable Findings: Viable female infant, Apgars 8/8, weight [], intact placenta, 3vc, normal appearing uterus, tubes, and ovaries. Indications:Christina Becerril is a 28 /Para 5/4 ,38 week gestation, no reassuring testing, arrhythmia, contractions, previous section, presenting for repeat section Procedure Details: The patient was seen in pre-op and the procedure was discussed with the patient in full, including the risks, benefits, and alternatives. All questions were answered. The patient was taken to the operating room and a time out was performed, verifying patient and procedure. After spinal anesthesia was placed by our anesthesia colleagues, the patient was placed in the dorsal supine with leftward tilt for uterine displacement.~ Her abdomen was then prepped and draped in the typical sterile fashion. A Pfannenstiel skin incision was made using a scalpel and carried down through the underlying fascia. The fascia was incised in the midline and tented up using Francisco clamps. On both the inferior and superior fascia side the rectus muscle was dissected off bluntly and sharply using Benavides scissors. The peritoneum was identified and entered bluntly in the midline. This was then stretched laterally using manual strength. After entering the abdominal cavity and confirming lack of intraperitoneal adhesions, a large Damaso retractor was placed and the lower uterine segment was visualized. A bladder flap was created with the use of Metzenbaum scissors.~ A scalpel was utilized to make a low transverse uterine incision. Amniotomy was performed with an Allis clamp with return of clear fluid. The infant's head was grasped and brought to the level of the incision. Fundal pressure was applied and infant was delivered without difficulty. Mouth and nares were suctioned with bulb suction. After the umbilical cord was clamped and cut, the was handed off to the pediatric staff. A sample of cord blood was then obtained. The placenta was delivered intact via uterine massage. The uterus was exteriorized and cleared of all clots and debris. The uterine incision was closed using 0 Vicryl in a running locked fashion. A second imbricated layer was placed using 0 Vicryl in a running fashion as well. The uterus was flexed forward and the posterior rectouterine space was inspected and cleared of all clots and debris. Again the hysterotomy site was examined and hemostasis was observed. The bilateral tubes and ovaries appeared normal. The uterus was placed back into the abdominal cavity and abdominal gutters were cleared of all clots and debris. A final check of the uterine incision showed it to be hemostatic. The peritoneum was closed using 3-0 Vicryl in a running fashion. The fascia was closed with 0 Vicryl in a running fashion. The subcutaneous space was hemostatic, and irrigated. The subcutaneous space was closed with 3-0 Vicryl in several single interrupted stitches. The skin was then closed using 4-0 Monocryl in a running subcuticular fashion. The skin edges were reapproximated together and were hemostatic. A pressure dressing was applied. All sponge, lap and needle counts were correct at the end of the procedure per nursing. Vitals - Labs Labs Laboratory Tests 03/24/19 17:30: Urine Color AMBERH, Urine Clarity SLIGHTLY CLOUDY, Urine pH 6, Urine Specific [place] 1.025H, Urine Protein 2+H, Urine Glucose (UA) NEGATIVE, Urine Ketones 1+H, Urine Nitrite NEGATIVE, Urine Bilirubin 1+H, Urine Urobilinogen 4H, Urine Leukocyte Esterase 3+H, Urine RBC (Auto) 1+H, Urine RBC RARE, Urine WBC 5-10H, Urine Squamous Epithelial Cells 5-10, Urine Crystals PRESENTH, Urine Calcium Oxalate Crystals FEWH, Urine Bacteria FEWH, Urine Casts NONE, Urine Mucus MODERATEH, Urine Culture Indicated YES 03/24/19 17:35: White Blood Count 11.8H, Red Blood Count 4.14L, Hemoglobin 12.0, Hematocrit 35, Mean Corpuscular Volume 86, Mean Corpuscular Hemoglobin 29, Mean Corpuscular Hemoglobin Concent 34, Red Cell Distribution Width 13.4, Platelet Count 317, Mean Platelet Volume 10.2, Neutrophils (%) (Auto) 74, Lymphocytes (%) (Auto) 19, Monocytes (%) (Auto) 6, Eosinophils (%) (Auto) 1, Basophils (%) (Auto) 0, Neutrophils # (Auto) 8.8H, Lymphocytes # (Auto) 2.3, Monocytes # (Auto) 0.7, Eosinophils # (Auto) 0.1, Basophils # (Auto) 0.0 MINNIE GÓMEZ DO Mar 24, 2019 20:07
[2019-03-24] MEDS ORDERED: LACTATED RINGERS 2,000 ML IV ONE (20:23)
--- NOTE | 2019-03-24 21:12 | NUR ---
Called Dr. Garcia as pt. c/o of itching & requesting meds, new order rc'd for Benadryl 50 mg PO QID. Will give.
[2019-03-24] MEDS ORDERED: diphenhydrAMINE 25 MG TAB (BENADRYL) PO PRN (21:15)
[2019-03-24] MEDS: DOCUSATE SODIUM 100 MG (COLACE) CAP PO SCH (21:21)
--- NOTE | 2019-03-24 21:21 | NUR ---
Benadryl & sched colace given w/fresh ice water, sandwich tray offered & given. FF U/1, mod rubra lochia, no clots, pericare done & pad changed, will cont. to monitor. Pt. denies pain or needs, family @ bedside.
[2019-03-24] MEDS ORDERED: CATHETER FLUSH 10 ML SYR IV SCH (22:00)
[2019-03-25 00:10] VITALS: BP 96/50
[2019-03-25] MEDS: ACETAMINOPHEN 500 MG TAB (TYLENOL) PO SCH ×4 (00:10→20:36)
[2019-03-25] MEDS: KETOROLAC 30 MG/ML VIAL IV SCH (01:22)
[2019-03-25 04:52] VITALS: BP 96/62
[2019-03-25] MEDS ORDERED: MILK OF MAGNESIA 400 MG/5 ML 30 ML UDC PO PRN (05:00)
[2019-03-25 06:49] LABS: BASOPHILS % (AUTO) 0 % (0-10); EOSINOPHILS # (AUTO) 0.1 10^3/uL (0.0-0.3); EOSINOPHILS % (AUTO) 1 % (0-10); HEMATOCRIT 33 % (35-52); HEMOGLOBIN 10.8 G/DL (11.5-16.0); LYMPHOCYTES # (AUTO) 3.2 X 10^3 (1.0-4.0); LYMPHOCYTES % (AUTO) 29 % (12-44); MEAN CORPUSCULAR HEMOGLOBIN 29 PG (25-34); MEAN CORPUSCULAR HGB CONC 33 G/DL (32-36); MEAN CORPUSCULAR VOLUME 87 FL (80-99); MEAN PLATELET VOLUME 10.2 FL (7.4-10.4); MONOCYTES # (AUTO) 0.7 X 10^3 (0.0-1.0); MONOCYTES % (AUTO) 7 % (0-12); NEUTROPHILS % (AUTO) 64 % (42-75); PLATELET COUNT 279 10^3/uL (130-400); RED CELL DISTRIBUTION WIDTH 13.4 % (10.0-14.5)
--- NOTE | 2019-03-25 08:27 | NUR ---
BETTE resendiz'berto. pt ambulating off unit with s/o @ side. no c/o's voiced @ time.
[2019-03-25] MEDS ORDERED: IBUPROFEN 600 MG (MOTRIN) TAB PO ONE ×2 (09:36→14:29)
[2019-03-25] MEDS: MUPIROCIN 2% OINT 22 GM (BACTROBAN) TUBE TOP SCH ×2 (09:40→20:36)
[2019-03-25] MEDS: TRIM/SULFAMETH 160/800 (SEPTRA DS) TAB PO SCH ×2 (09:40→13:37)
[2019-03-25] MEDS: DOCUSATE SODIUM 100 MG (COLACE) CAP PO SCH ×2 (09:40→20:36)
[2019-03-25] MEDS: IBUPROFEN 600 MG (MOTRIN) TAB PO SCH ×3 (09:41→20:36)
[2019-03-25 09:50] VITALS: BP_SYST 102; BP_SYST 96; BP_DIAS 55; BP_DIAS 62
--- NOTE | 2019-03-25 09:50 | NUR ---
initial shift assessment completed, see interventions for further.abd incision BOILER OUT with Dermabond intact. no sx's of infection noted.
--- NOTE | 2019-03-25 14:09 | Anesthesia-Regional Post-Op ---
Regional Patient Condition Mental Status: Alert, Oriented x3 Circulation: Same as Pre-Op Headache: Absent Sensation: Full Recovery Motor Block: Absent Post Op Complications Complications None Follow Up Care/Instructions Patient Instructions None needed. Anesthesia/Patient Condition Patient is doing well, no complaints, stable vital signs, no apparent adverse anesthesia problems. No complications reported per nursing. RYAN HOUSTON CRNA Mar 25, 2019 14:09
[2019-03-25 14:37] VITALS: BP 104/65
--- NOTE | 2019-03-25 19:22 | NUR ---
report given to next shift.
[2019-03-25 20:36] VITALS: BP 98/65
[2019-03-26] MEDS: KETOROLAC 30 MG/ML VIAL IV SCH (01:36)
[2019-03-26] MEDS: IBUPROFEN 600 MG (MOTRIN) TAB PO SCH ×2 (02:50→08:45)
[2019-03-26] MEDS: ACETAMINOPHEN 500 MG TAB (TYLENOL) PO SCH ×2 (02:50→08:45)
--- NOTE | 2019-03-26 08:12 | Postpartum Progress Note ---
Post Op Post-operative Day #2 s/p RLTCS Subjective: Patient is without complaints. Ambulating, voiding after berry removed. Tolerating a regular diet without nausea or vomiting. Normal lochia. Pain is well controlled with oral pain medications. Passing flatus. Objective: Laboratory Tests Test 03/24/19 17:30 03/24/19 17:35 03/25/19 06:15 Range/Units Urine Color KATHE H Urine Clarity SLIGHTLY CLOUDY Urine pH 6 5-9 Urine Specific [place] 1.025 H 1.016-1.022 Urine Protein 2+ H NEGATIVE Urine Glucose (UA) NEGATIVE NEGATIVE Urine Ketones 1+ H NEGATIVE Urine Nitrite NEGATIVE NEGATIVE Urine Bilirubin 1+ H NEGATIVE Urine Urobilinogen 4 H NORMAL MG/DL Urine Leukocyte Esterase 3+ H NEGATIVE Urine RBC (Auto) 1+ H NEGATIVE Urine RBC RARE /HPF Urine WBC 5-10 H /HPF Urine Squamous Epithelial Cells 5-10 /HPF Urine Crystals PRESENT H /LPF Urine Calcium Oxalate Crystals FEW H /LPF Urine Bacteria FEW H /HPF Urine Casts NONE /LPF Urine Mucus MODERATE H /LPF Urine Culture Indicated YES White Blood Count 11.8 H 11.0 4.3-11.0 10^3/uL Red Blood Count 4.14 L 3.74 L 4.35-5.85 10^6/uL Hemoglobin 12.0 10.8 L 11.5-16.0 G/DL Hematocrit 35 33 L 35-52 % Mean Corpuscular Volume 86 87 80-99 FL Mean Corpuscular Hemoglobin 29 29 25-34 PG Mean Corpuscular Hemoglobin Concent 34 33 32-36 G/DL Red Cell Distribution Width 13.4 13.4 10.0-14.5 % Platelet Count 317 279 130-400 10^3/uL Mean Platelet Volume 10.2 10.2 7.4-10.4 FL Neutrophils (%) (Auto) 74 64 42-75 % Lymphocytes (%) (Auto) 19 29 12-44 % Monocytes (%) (Auto) 6 7 0-12 % Eosinophils (%) (Auto) 1 1 0-10 % Basophils (%) (Auto) 0 0 0-10 % Neutrophils # (Auto) 8.8 H 7.0 1.8-7.8 X 10^3 Lymphocytes # (Auto) 2.3 3.2 1.0-4.0 X 10^3 Monocytes # (Auto) 0.7 0.7 0.0-1.0 X 10^3 Eosinophils # (Auto) 0.1 0.1 0.0-0.3 10^3/uL Basophils # (Auto) 0.0 0.0 0.0-0.1 10^3/uL 03/25/19 20:36 Temp 98.3 Pulse 76 Resp 18 B/P (MAP) 98/65 (76) Pulse Ox 98 O2 Delivery Room Air 03/26/19 00:00 Intake Total 300 ml Output Total 500 ml Balance -200 ml Physical Exam: General - Alert and oriented, no apparent distress Abdomen - Soft, appropriately tender to palpation, non-distended, fundus firm at umbilicus Incision - clean, dry and intact; no erythema or induration, no drainage Extremities - no edema, negative Casie's bilaterally Assessment: 1 post-operative day # 2, status post RLTCS. Recovering well, hemodynamically stable Plan: Routine post-operative care. Encourage breast feeding. Encourage ambulation. VTE prophylaxis: SCDs. Ferrous sulfate supplementation. Plan for discharge or to rooming in Vitals - Labs Vital Signs - I&O Vital Signs Date Time Temp Pulse Resp B/P (MAP) Pulse Ox O2 Delivery O2 Flow Rate FiO2 03/25/19 20:36 98.3 76 18 98/65 (76) 98 Room Air 03/25/19 14:37 98.1 68 18 104/65 (78) 98 Room Air 03/25/19 09:50 97.7 75 18 102/55 (71) 98 Room Air I & O 03/26/19 07:00 Intake Total 900 ml Output Total 500 ml Balance 400 ml Labs Microbiology 03/24/19 Urine Culture - Final, Complete 3 or more isolates MINNIE GÓMEZ DO Mar 26, 2019 08:12
--- NOTE | 2019-03-26 08:15 | NUR ---
Dr Garcia here. d/c instructions received.
[2019-03-26 08:30] VITALS: BP 103/67
[2019-03-26] MEDS ORDERED: OXC5T PO (08:37)
[2019-03-26] MEDS ORDERED: DOCU100C37 PO (08:37)
[2019-03-26] MEDS ORDERED: IBUP-844 PO (08:37)
[2019-03-26] MEDS ORDERED: ACET-77 PO (08:37)
[2019-03-26] MEDS: MUPIROCIN 2% OINT 22 GM (BACTROBAN) TUBE TOP SCH (08:45)
[2019-03-26] MEDS: TRIM/SULFAMETH 160/800 (SEPTRA DS) TAB PO SCH (08:45)
[2019-03-26] MEDS: DOCUSATE SODIUM 100 MG (COLACE) CAP PO SCH (08:45)
--- NOTE | 2019-03-26 08:45 | Discharge Inst-Women's Service ---
Discharge Inst-Women's Serv Depart Medication/Instructions New, Converted or Re-Newed RX: RX on Chart Final Diagnosis previous section times 4 skin abscess arrhythmia non reactive non stress test contractions/labor Consults/Follow Up Additional Follow Up: Yes (1 week for incision check and 6 week pp exam) Activity Activity: Activity as Tolerated Driving Instructions: No Driving for 1 Week NO SMOKING: NO SMOKING Nothing Inside Vagina: No Douching, No [place], No Tampons Diet Discharge Diet: No Restrictions Symptoms to Report to DrMaira: Bleeding Excessive, Pain Increased, Fever Over 101 Degrees F, Vaginal Bleeding Increase, Cramps in Feet or Legs, Vaginal Discharge Foul For Any Problems or Questions: Contact Your Physician Skin/Wound Care Infection Signs and Symptoms: Increased Redness, Foul Odor of Wound, Increased Drainage, Skin Itchy or Has a Rash, Increased Swelling, Temperature Above 101 F Operative Area Clean and Dry: Keep Incision Clean/Dry Wound Care Comment: continue bactroban twice daily. Use cotton applicator and then discard. (please send tube with patient) Stitches/[place]/Dermabond: Dermabond Bathing Instructions: MINNIE More DO Mar 26, 2019 08:45
--- NOTE | 2019-03-26 12:05 | NUR ---
MAIRA FERNANDEZ demonstrates understanding of discharge instructions and accurately returns instructions upon questioning. Copy of Post-Discharge Instructions and Medication Discharge Instructions given to PATIENT. MAIRA FERNANDEZ is able to manage continuing needs after discharge. Patients belongings returned to PATIENT. Skin dry and intact; no breakdown noted. [facility] at 1202. MAIRA FERNANDEZ left floor via AMBULATION, accompanied by STAFF.
== END 2019-03-26 12:05 | disposition home or self-care (01) | DRG 787 ==
LOC: LDRP 16:00
PROVIDERS: ADMIT Obstetrics & Gynecology; ATTEND Obstetrics & Gynecology
PROC: 10D00Z1 Extraction of Products of Conception, Low, Open Approach (ICD-10-PCS; principal; 2019-03-24 18:54)
DX: O76 Abnormality in fetal heart rate and rhythm complicating labor and delivery (principal); O36.8130 Decreased fetal movements, third trimester, not applicable or unspecified; O34.211 Maternal care for low transverse scar from previous cesarean delivery; O99.72 Diseases of the skin and subcutaneous tissue complicating childbirth; L02.91 Cutaneous abscess, unspecified; Z37.0 Single live birth; Z3A.38 38 weeks gestation of pregnancy; Z87.891 Personal history of nicotine dependence
CPT/HCPCS: 36415; 81000; 85025; 86850; 86900; 86901; 87088; 94664

== ENCOUNTER → 2019-03-24 | Outpatient (CLI) | payer MEDICAID ==
[~2019-03-24] MED LIST changes: +ACET-77 PO; +DOCU100C37 PO; +IBUP-844 PO; +OXC5T PO
== END | disposition home or self-care (01) ==
LOC: PREOP 05:50
PROVIDERS: ATTEND Obstetrics & Gynecology
DX: Z01.818 Encounter for other preprocedural examination (principal)

== ENCOUNTER → 2019-11-02 | Outpatient (CLI) | payer MEDICAID ==
[~2019-11-02] MED LIST changes: +ACET-78 PO; +DOCU100C37 PO; +IBUP-844 PO; +OXC5T PO
--- NOTE | 2019-11-02 12:44 | Diagnostic Imaging Report ---
PROCEDURE: US non-OB pelvis comp/trans. TECHNIQUE: Multiple realtime grayscale images were obtained of the pelvis in various projections endovaginally. Transabdominal imaging was also performed. INDICATION: Menometrorrhagia. FINDINGS: The uterus is anteverted measuring 9.4 x 4.1 x 5.9 cm. Endometrium is 5 mm in thickness. There is some fluid within the endometrial canal. No uterine mass is detected. Right ovary measures 2.9 x 3.9 x 2.2 cm, and the left ovary measures 3.3 x 2.3 x 1.9 cm. Right ovary does contain a septated 2 cm cyst. No free fluid is seen. IMPRESSION: 1. Endometrial fluid. 2. 2.0 cm septated right ovarian cyst. Dictated by: Dictated on workstation # [id number]
== END ==
LOC: RAD 09:29
PROVIDERS: ATTEND Obstetrics & Gynecology
DX: N92.1 Excessive and frequent menstruation with irregular cycle (principal); N83.201 Unspecified ovarian cyst, right side; N85.8 Other specified noninflammatory disorders of uterus
CPT/HCPCS: 76830; 76856

== ENCOUNTER 2020-01-21 13:13 | Outpatient (RCR) | payer MEDICAID ==
[~2020-01-21] VITALS: Ht 167 cm; Wt 94.7 kg
[2020-01-21] MEDS ORDERED: NORG1TAB33 PO (13:24)
[2020-01-21 13:27] VITALS: BP 120/76
[2020-01-21 14:05] LABS: BASOPHILS % (AUTO) 0 % (0-10); EOSINOPHILS # (AUTO) 0.2 10^3/uL (0.0-0.3); EOSINOPHILS % (AUTO) 2 % (0-10); HEMATOCRIT 38 % (35-52); HEMOGLOBIN 13.1 G/DL (11.5-16.0); LYMPHOCYTES # (AUTO) 2.8 X 10^3 (1.0-4.0); LYMPHOCYTES % (AUTO) 28 % (12-44); MEAN CORPUSCULAR HEMOGLOBIN 30 PG (25-34); MEAN CORPUSCULAR HGB CONC 35 G/DL (32-36); MEAN CORPUSCULAR VOLUME 85 FL (80-99); MONOCYTES # (AUTO) 0.6 X 10^3 (0.0-1.0); MONOCYTES % (AUTO) 6 % (0-12); NEUTROPHILS # (AUTO) 6.2 X 10^3 (1.8-7.8); NEUTROPHILS % (AUTO) 64 % (42-75); PLATELET COUNT 302 10^3/uL (130-400); RED CELL DISTRIBUTION WIDTH 13.7 % (10.0-14.5); WHITE BLOOD COUNT 9.7 10^3/uL (4.3-11.0)
[2020-01-21 14:07] LABS: BILIRUBIN,URINE NEGATIVE (NEGATIVE); CLARITY,URINE CLEAR; COLOR,URINE YELLOW; GLUCOSE, URINE (UA) NEGATIVE (NEGATIVE); KETONES,URINE NEGATIVE (NEGATIVE); LEUKOCYTE ESTERASE ,URINE NEGATIVE (NEGATIVE); NITRITE,URINE NEGATIVE (NEGATIVE); PROTEIN,URINE NEGATIVE (NEGATIVE)
[2020-01-21 14:14] LABS: BACTERIA,URINE FEW /HPF; WBC,URINE 0-2 /HPF
[2020-01-25] MEDS ORDERED: ACET-93 PO (14:51)
[2020-01-25] MEDS ORDERED: SIME80TA16 PO (14:51)
[2020-01-25] MEDS ORDERED: OXYC5TAB96 PO (14:51)
[2020-01-25] MEDS ORDERED: IBUP-844 PO (14:51)
== END 2020-01-21 16:00 | disposition home or self-care (01) ==
LOC: PREOP 13:13
PROVIDERS: ATTEND Obstetrics & Gynecology
DX: Z01.818 Encounter for other preprocedural examination (principal); N92.0 Excessive and frequent menstruation with regular cycle; N94.6 Dysmenorrhea, unspecified
CPT/HCPCS: 36415; 81000; 85025; 86850; 86900; 86901; 87081; 87635